=== PATIENT | female | born 1985 | race Caucasian/White ===

== ENCOUNTER 2024-06-21 22:50 | Emergency (ER) | payer MEDICAID, SELFPAY ==
[2024-06-21 22:52] VITALS: BP 131/93; PULSE 100; PULSE 103; RESP 100; RESP 18; TEMP 36.8; O2SAT 96; O2SAT 98; BMI 37.1
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
--- NOTE | 2024-06-21 23:45 | PC.NURSE ---
PT AWAKE AND AMBULATORY. PT WALKING AROUND OUTSIDE OF ROOM. ENCOURAGED PT TO STAY AND WAIT TO TALK TO DOCTOR. PT CONTINUES TO REFUSE TO STAY. STATES SHE HAS WORK IN THE MORNING. INFORMED PT OF CONSEQUENCES, INCLUDING UP TO NOT WAKING UP. PT VERBALIZED UNDERSTANDING.
== END 2024-06-22 00:23 | disposition left against medical advice (07) ==
PROVIDERS: Emergency Provider Emergency Medicine
DX: Z53.21 Procedure and treatment not carried out due to patient leaving prior to being seen by health care provider (principal)
CPT/HCPCS: 99281

== ENCOUNTER 2025-01-16 15:01 | Emergency (ER) | payer MEDICAID, SELFPAY ==
[2025-01-16 15:29] VITALS: BP 127/84; PULSE 74; RESP 18; TEMP 36.9; O2SAT 98; BMI 33.4
--- NOTE | 2025-01-16 15:33 | XR_ITS ---
Examination: Complete OB ultrasound, less than 14 weeks, transabdominal Date and time of exam: January 16, 2025, 1612 hrs. Indications: Heavy vaginal bleeding today Technique: Obstetrical ultrasound images less than 14 weeks performed via transabdominal imaging Findings: A normal shaped single intrauterine gestation is present in the uterus. CRL 0.7 cm corresponds to 6 weeks 3 days gestational age No subchorionic hemorrhage Ultrasonographic survey of visible and placental structures unremarkable. Amniotic fluid volume appears appropriate for this estimated gestational age. Right ovary 4.5 cm arterial flow. Left ovary 4.3 cm arterial flow Impression: Viable intrauterine gestation 6 weeks 3 days No subchorionic hemorrhage
--- NOTE | 2025-01-16 15:33 | PD.EDRME ---
Rapid Medical Screening Exam RME Arrival date/time: 01/16/25 15:01 39-year-old female with no known medical history presents to the emergency room with a chief complaint of vaginal bleeding x 2 hours. Patient is currently 6 weeks she is a G4, P2. I have greeted and performed a focused initial assessment of this patient. A comprehensive ED assessment and evaluation of the patient, analysis of all test results, and completion of the medical decision making process will be conducted by additional ED providers. Chief Complaint: Vaginal Bleeding Time Seen by Provider: 01/16/25 15:30 Vital signs: Vital Signs Temperature 98.4 F 01/16/25 15:29 Pulse Rate 74 01/16/25 15:29 Respiratory Rate 18 01/16/25 15:29 Blood Pressure 127/84 01/16/25 15:29 Pulse Oximetry (%) 98 01/16/25 15:29 Oxygen Delivery Method Room Air 01/16/25 15:29 Vital signs reviewed by provider: Yes
[2025-01-16 16:07] LABS: Basophils # (Auto) 0.0 Thou/mm3 (0.0-0.2); Basophils % (Auto) 0 % (0-2.5); Eosinophils # (Auto) 0.1 Thou/mm3 (0.0-0.5); Eosinophils % (Auto) 1 % (0-10); Hematocrit 41.2 % (36.0-46.0); Hemoglobin 14.2 g/dL (12.0-16.0); Immature Granulocytes Auto 0.02 Thou/mm3 (0.00-0.00); Lymphocytes # (Auto) 1.9 Thou/mm3 (1.0-4.8); Lymphocytes % (Auto) 26 % (10-50); Mean Corpuscular HGB Conc 34.5 g/dl (31.0-37.0); Mean Corpuscular Hemoglobin 32.7 pg (25.0-35.0); Mean Corpuscular Volume 95 fL (80-100); Monocytes # (Auto) 0.4 Thou/mm3 (0.0-0.8); Monocytes % (Auto) 6 % (0-12); Neutrophils # (Auto) 4.8 Thou/mm3 (1.8-7.7); Neutrophils % (Auto) 67 % (37-80); Nucleated Red Blood Cell # 0.00 Thou/mm3 (0.00-0.00); Nucleated Red Blood Cell % 0 /100 WBC (0); Platelet Count 141 Thou/mm3 (140-440); RDW Standard Deviation 45.1 fL (36.4-46.3); Red Blood Count 4.34 Miln/mm3 (4.00-5.20); White Blood Count 7.1 Thou/mm3 (3.6-11.0)
[2025-01-16 16:30] LABS: Alanine Aminotransferase 11 U/L (10-49); Albumin, Serum 4.2 gm/dL (3.5-5.0); Albumin/Globulin Ratio 1.9 (1.2-2.2); Alkaline Phosphatase 54 U/L (46-116); Anion Gap 7 (7-16); Aspartate Amino Transferase 18 U/L (0-34); BUN/Creatinine Ratio 6 Ratio (12-20); Bilirubin,Total 0.4 mg/dL (0.3-1.2); Blood Urea Nitrogen < 5 mg/dL (9-23); Calcium 9.9 mg/dL (8.3-10.6); Calcium (Corrected) 9.9 mg/dL (8.5-10.1); Carbon Dioxide 24.8 mMol/L (20.0-31.0); Chloride 109 mMol/L (98-107); Creatinine (Component) 0.8 mg/dL (0.6-1.3); Estimated Creatinine Clearance 122.8 mL/min (>60); Globulin 2.2 gm/dL (2.3-3.5); Glucose 84 mg/dL (74-106); Osmolality,Calculated 277 (275-295); Potassium 4.4 mMol/L (3.4-5.1); Sodium 141 mMol/L (136-145); Total Protein 6.4 gm/dL (5.7-8.2); eGFR > 60 See Note
[2025-01-16 17:05] LABS: Beta HCG,Quantitative 40337 mIU/mL (<5.0)
[2025-01-16 17:09] LABS: Collection Type, Urine Clean Catch
[2025-01-16 17:19] LABS: Bilirubin,Urine Negative (Negative); Blood,Urine 2+ (Negative); Clarity,Urine Clear (Clear/Hazy); Color,Urine Yellow (Lt Yel-Yel); Glucose, Urine Negative (Negative); Ketones,Urine Negative (Negative); Leukocyte Esterase,Urine Negative (Negative); Nitrite,Urine Negative (Negative); PH,Urine 5.5 (5.0-7.0); Protein,Urine Negative (Neg - Trace); RBC,Urine 2 /hpf (0-3); Specific Gravity,Urine 1.018 (1.001-1.035); Squamous Epithelial Cell,Urine 1 /hpf (0-5); Urobilinogen,Urine Negative mg/dL (0.0-1.0); WBC,Urine 2 /hpf (0-5)
--- NOTE | 2025-01-16 18:49 | EDNOTE_ITS ---
ED OB Contraction Preg RMI/HPI General Chief complaint: Vaginal Bleeding Stated complaint: , 6 weeks OB, vaginal bleeding X 2 hours Time Seen by Provider: 01/16/25 15:30 Arrival date/time: 01/16/25 15:01 RME / HPI RME / HPI Narrative: 01/16/25 15:01 39-year-old female with no known medical history presents to the emergency room with a chief complaint of vaginal bleeding x 2 hours. Patient is currently 6 weeks she is a G4, P2. I have greeted and performed a focused initial assessment of this patient. A comprehensive ED assessment and evaluation of the patient, analysis of all test results, and completion of the medical decision making process will be conducted by additional ED providers. Dr. Mills?s Main ED Evaluation: 39yo female who is EGA 6 weeks gestati on, recent home positive test now presenting with vaginal bleeding with what appeared to be dark blood earlier today. She had mild abdominal cramping that has since resolved. No fever, chills, vomiting, dizziness, or near syncope. PMH unremarkable. PSH unremarkable. Allergies ?penicillin. Related Data Home Medications ?Medication ?Instructions ?Recorded ?Confirmed labetalol 100 mg tablet 100 mg PO BID 08/20/1902/24 vit no.95-ferrous 1 tab PO DAILY 08/20/1908/10 fumarate 28 mg-folic acid 800 mcg tablet () iron 18 mg tablet 1 mg PO QDAY 02/25/20 Previous Rx's ?Medication ?Instructions ?Recorded hydrocodone 5 mg-acetaminophen 325 1 tab PO Q6H PRN pa in #30 tabs 02/26/20 mg tablet ([place]) albuterol sulfate 90 mcg/actuation 2 puff inhalation Q ID PRN 11/10/21 aerosol inhaler shortness of breath or wheez ing #8.5 grams budesonide-formoterol HFA 80 2 puff inhalation BID #10 .2 grams 11/10/21 mcg-4.5 mcg/actuation aerosol inhaler (Symbicort) hydrocodone 5 mg-acetaminophen 325 1 tab PO BID PRN pa in #8 tabs 02/24/24 mg tablet ibuprofen 800 mg tablet 800 mg PO TID PRN pain #30 t abs 02/24/24 hydrocodone 5 mg-acetaminophen 325 1 tab PO BID PRN pa in #10 tabs 02/27/24 mg tablet ibuprofen 600 mg tablet 600 mg PO Q8H PRN pain #20 t abs 02/27/24 promethazine 12.5 mg tablet 12.5 mg PO TID nausea #21 tabs 01/16/25 Allergies Allergy/AdvReac Type Severity Reaction Status Date / Time codeine Allergy Mild RASH Verified 01/16/25 15:06 Penicillins Allergy Mild VOMITING Verified 01/16/25 15:06 Review of Systems Review of Systems Systems Reviewed: All systems reviewed, normal except as documented ED Exam Narrative Physical exam: GENERAL APPEARANCE: alert and oriented x 4, well-developed, well-nourished, nontoxic, no acute distress VITALS: All vitals were reviewed and the pulse ox is 98% on room air, which is normal according to my interpretation. HEENT: Normocephalic, atraumatic; pupils equal, round, reactive to light; EOMI; mucous membranes pink, moist; oropharynx clear NECK: Supple LUNGS: CTABL; no wheezes, no rales, no rhonchi HEART: Regular rate, regular rhythm; normal S1, S2; no murmurs ABDOMEN: obese, non distended; soft, no tenderness, no guarding, no rebound BACK: no CVA tenderness EXTREMITIES: atraumatic; no edema NEUROLOGIC: awake; alert and oriented x4; cranial nerves II-XII grossly intact; no focal sensory or motor deficits PSYCHIATRIC: appropriate mood and affect SKIN: warm, dry, normal color; no rashes Course Quality Measures none Orders Category Date Time Status US OB <= 14 weeks fetus Stat Exams 01/16/25 15:33 Completed Beta HCG,Quantitative Stat Lab 01/16/25 15:55 Completed CBC Stat Lab 01/16/25 15:55 Completed CMP [Comprehensive Metabolic Panel] Stat Lab 01/16/25 15:55 Completed RHOGAM [Rho(D) Immune Globulin] Stat Lab 01/16/25 15:55 Completed Type and Screen Stat Lab 01/16/25 15:55 Completed UA [Urinalysis] Stat Lab 01/16/25 16:59 Completed Vital Signs Vital signs: Vital Signs Temperature 98.4 F 01/16/25 15:29 Pulse Rate 74 01/16/25 15:29 Respiratory Rate 18 01/16/25 15:29 Blood Pressure 127/84 01/16/25 15:29 Pulse Oximetry (%) 98 01/16/25 15:29 Oxygen Delivery Method Room Air 01/16/25 15:29 Vaginal Bleeding MDM Narrative MDM Narrative: Scribe Attestation: 01/16/25 - Mariel Xiong am scribing for and in the presence of Dr. Mills. 39yo female who is EGA 6 weeks gestation, recent home positive test now presenting with vaginal bleeding with what appeared to be dark blood earlier today. She had mild abdominal cramping that has since resolved. Please see PE findings. Lab markers demonstrate WBC 7.1, Hgb 14, and normal platelet count. Chemistries unremarkable. Quantitative HCG 40k. Special studies including pelvic US demonstrated viable IUP of 6 weeks 3 days. No subchorionic hemorrhage noted. Will update Rhogam status and reassure at this time. Patient instructed to force fluids, pelvic rest, and will be placed on combination of anti-emetics and is to take Tylenol for pain. Close follow-up with [facility]PER[facility] anticipated. Precau tionary instructions issued. Dx: threatened miscarrige Patient data External records reviewed:: [facility] previous records (Per chart review, patient has no relevant previous ED visits.) Clinical information provided by:: patient Social determinants that could affect healthcare access:: none Patient has the following chronic illnesses:: none How is presenting disease/condition affected by chronic disease/condition?: no chronic disease Evaluation data The following diagnostics were reviewed and interpreted by me:: lab results and radiology exam(s) Lab and/or radiology exams considered but not ordered:: none Interpretation Summary: [place] [facility] Report Signed Patient: RASHI LUA [facility]. Record#: [id number] Birthdate: 1985 Age/Sex: 39 / F Location: [facility] Attending Dr: Ordering Physician: Aníbal Molina Date of Service: 01/16/25 Procedure(s): US OB <= 14 weeks fetus Accession Number(s): [id number] cc: Aníbal Molina; Phillip Jaquez MD; NO PRIMARY/FAMILY,PHYSICIAN~ Examination: Complete OB ultrasound, less than 14 weeks, transabdominal Date and time of exam: January 16, 2025, 1612 hrs. Indications: Heavy vaginal bleeding today Technique: Obstetrical ultrasound images less than 14 weeks performed via transabdominal imaging Findings: A normal shaped single intrauterine gestation is present in the uterus. CRL 0.7 cm corresponds to 6 weeks 3 days gestational age No subchorionic hemorrhage Ultrasonographic survey of visible and placental structures unremarkable. Amniotic fluid volume appears appropriate for this estimated gestational age. Right ovary 4.5 cm arterial flow. Left ovary 4.3 cm arterial flow Impression: Viable intrauterine gestation 6 weeks 3 days No subchorionic hemorrhage Dictated By: Phillip Jaquez MD Signed By: <Electronically signed by Phillip Jaquez MD in OV> 01/16/25 1728 Medications / Prescriptions Medications or Prescriptions considered but not ordered:: none Medication administrations:: Rhogam Consultations Consultation(s) initiated? (list below): No Diagnosis Vaginal Bleeding Differential Diagnosis: missed , threatened , dysfunctional uterine bleeding, incomplete , ectopic without intrauterine and vaginal bleeding Most likely diagnosis given after review of the tests above:: threatened Admission Indicated Admission indicated?: not indicated Admission Request Was there a request for admission?: No Disposition Plan Disposition Plan: Discharge Discharge Attestation Discharge Attestation: The patient and all family members were given an opportunity to ask questions and understood the discharge instructions. Discharge instructions specifically effects, indications for sooner follow up or return to the emergency department, and the expected course of current diagnosis. Patient condition: Stable Discharge Plan Plan Patient Disposition: HOME (Self Care) Discharge Disposition comment: Stable Prescriptions/Referrals Prescriptions/Med Rec: New promethazine 12.5 mg tablet 12.5 mg PO TID Qty: 21 0RF No Action PNV no.95-ferrous fumarate-FA [] 28 mg iron- 800 mcg Tablet 1 tab PO DAILY labetalol 100 mg tablet 100 mg PO BID Patient Comments: TAKE 1 TABLET BY MOUTH TWICE A DAY budesonide-formoterol [Symbicort] 80-4.5 mcg/actuation HFA aerosol inhaler 2 puff inhalation BID Qty: 10.2 0RF albuterol sulfate 90 mcg/actuation HFA aerosol inhaler 2 puff inhalation QID PRN (Reason: shortness of breath or wheezing) Qty: 8.5 0RF iron 18 mg Tablet 1 mg PO QDAY hydrocodone-acetaminophen [[place]] 5-325 mg tablet 1 tab PO Q6H MDD 4 PRN (Reason: pain) Qty: 30 0RF ibuprofen 800 mg tablet 800 mg PO TID PRN (Reason: pain) Qty: 30 0RF hydrocodone-acetaminophen 5-325 mg tablet 1 tab PO BID MDD 10 PRN (Reason: pain) Qty: 8 0RF hydrocodone-acetaminophen 5-325 mg tablet 1 tab PO BID MDD 2 tabs PRN (Reason: pain) Qty: 10 0RF ibuprofen 600 mg tablet 600 mg PO Q8H PRN (Reason: pain) Qty: 20 0RF Referrals: No Primary/Family,Physician [Primary Care Provider] - In 1 week Problem List Clinical Impression: Miscarriage, threatened, early Patient/Caregiver Discharge Instructions Discharge Activity: activity as tolerated Other Activity Instructions:: Pelvic rest Diet Instructions: For fluids Education Materials: ED Possible Miscarriage ... Additional Instructions: Force fluids, pelvic rest, medication as directed, follow-up with [facility] [employer] MANAGER physician within 1 to 2 weeks return if worsening Print Language: Ugandan Stand Alone Forms: Priyanka Award Info., Work/School Release, Patient Portal Info Letter
[2025-01-16 21:14] VITALS: BP 124/75; RESP 16; TEMP 36.7; O2SAT 98
[2025-01-16 21:32] VITALS: BP 124/79; PULSE 59; RESP 16; TEMP 36.7; TEMP 36.8; O2SAT 98
[2025-01-16 21:47] VITALS: BP 120/80; PULSE 59; RESP 16; TEMP 36.8; O2SAT 98
== END 2025-01-16 21:50 | disposition home or self-care (01) ==
PROVIDERS: Nurse Practitioner Family; Emergency Provider Emergency Medicine
DX: O20.0 Threatened abortion (principal); Z3A.01 Less than 8 weeks gestation of pregnancy
CPT/HCPCS: 36415; 76801; 80053; 81001; 84702; 85025; 86850; 86900; 86901; 99284; J2790

== ENCOUNTER 2025-01-26 15:38 | Emergency (ER) | payer MEDICAID, SELFPAY ==
[2025-01-26 15:54] VITALS: BP 128/80; PULSE 75; RESP 18; TEMP 37.3; O2SAT 97; BMI 36.1
--- NOTE | 2025-01-26 16:08 | XR_ITS ---
Examination: Complete OB ultrasound, less than 14 weeks, transabdominal Date and time of exam: January 26, 2025, 1633 hours INDICATIONS: History vaginal bleeding January 16, 2025 and today Technique: Obstetrical ultrasound images less than 14 weeks performed via transabdominal imaging Findings: A normal shaped single intrauterine gestation is present in the uterus. CRL 1.6 cm corresponds to 8 weeks 0 days gestational age Cardiac motion 164 BPM No subchorionic hemorrhage Ultrasonographic survey of visible and placental structures unremarkable. Amniotic fluid volume appears appropriate for this estimated gestational age. Right ovary 4.5 cm arterial flow 15 mm corpus luteum cyst Left ovary obscured by bowel gas IMPRESSION: Viable intrauterine gestation 8 weeks 0 days No subchorionic hemorrhage
--- NOTE | 2025-01-26 16:08 | PD.EDRME ---
Rapid Medical Screening Exam E Arrival date/time: 01/26/25 15:38 39-year-old female with no known medical history presents to the emergency room with a chief complaint of vaginal bleeding x 3 days. Patient is currently 8 weeks she is a G G4, P3. I have greeted and performed a focused initial assessment of this patient. A comprehensive ED assessment and evaluation of the patient, analysis of all test results, and completion of the medical decision making process will be conducted by additional ED providers. Chief Complaint: Vaginal Bleeding Time Seen by Provider: 01/26/25 15:50 Vital signs: Vital Signs Temperature 99.2 F 01/26/25 15:54 Pulse Rate 75 01/26/25 15:54 Respiratory Rate 18 01/26/25 15:54 Blood Pressure 128/80 01/26/25 15:54 Pulse Oximetry (%) 97 01/26/25 15:54 Oxygen Delivery Method Room Air 01/26/25 15:54 Vital signs reviewed by provider: Yes
[2025-01-26 16:47] LABS: Collection Type, Urine Clean Catch; RBC,Urine 0 /hpf (0-3)
[2025-01-26 16:54] LABS: Basophils # (Auto) 0.0 Thou/mm3 (0.0-0.2); Basophils % (Auto) 0 % (0-2.5); Eosinophils # (Auto) 0.0 Thou/mm3 (0.0-0.5); Eosinophils % (Auto) 1 % (0-10); Hematocrit 39.6 % (36.0-46.0); Hemoglobin 13.8 g/dL (12.0-16.0); Immature Granulocytes Auto 0.02 Thou/mm3 (0.00-0.00); Lymphocytes # (Auto) 2.5 Thou/mm3 (1.0-4.8); Lymphocytes % (Auto) 30 % (10-50); Mean Corpuscular HGB Conc 34.8 g/dl (31.0-37.0); Mean Corpuscular Hemoglobin 32.1 pg (25.0-35.0); Mean Corpuscular Volume 92 fL (80-100); Monocytes # (Auto) 0.4 Thou/mm3 (0.0-0.8); Monocytes % (Auto) 5 % (0-12); Neutrophils # (Auto) 5.4 Thou/mm3 (1.8-7.7); Neutrophils % (Auto) 64 % (37-80); Nucleated Red Blood Cell # 0.00 Thou/mm3 (0.00-0.00); Nucleated Red Blood Cell % 0 /100 WBC (0); Platelet Count 147 Thou/mm3 (140-440); RDW Standard Deviation 42.1 fL (36.4-46.3); Red Blood Count 4.30 Miln/mm3 (4.00-5.20); White Blood Count 8.4 Thou/mm3 (3.6-11.0)
[2025-01-26 17:24] LABS: Alanine Aminotransferase 13 U/L (10-49); Albumin, Serum 4.2 gm/dL (3.5-5.0); Albumin/Globulin Ratio 1.8 (1.2-2.2); Alkaline Phosphatase 55 U/L (46-116); Anion Gap 10 (7-16); Aspartate Amino Transferase 18 U/L (0-34); BUN/Creatinine Ratio 10 Ratio (12-20); Bilirubin,Total 0.5 mg/dL (0.3-1.2); Blood Urea Nitrogen 7 mg/dL (9-23); Calcium 9.1 mg/dL (8.3-10.6); Calcium (Corrected) 9.1 mg/dL (8.5-10.1); Carbon Dioxide 23.0 mMol/L (20.0-31.0); Chloride 107 mMol/L (98-107); Creatinine (Component) 0.7 mg/dL (0.6-1.3); Estimated Creatinine Clearance 132.4 mL/min (>60); Globulin 2.4 gm/dL (2.3-3.5); Glucose 69 mg/dL (74-106); Osmolality,Calculated 275 (275-295); Potassium 3.6 mMol/L (3.4-5.1); Sodium 140 mMol/L (136-145); Total Protein 6.6 gm/dL (5.7-8.2); eGFR > 60 See Note
[2025-01-26 17:28] LABS: Bacteria,Urine Rare; Bilirubin,Urine Negative (Negative); Blood,Urine Negative (Negative); Clarity,Urine Clear (Clear/Hazy); Color,Urine Yellow (Lt Yel-Yel); Glucose, Urine Negative (Negative); Ketones,Urine Negative (Negative); Leukocyte Esterase,Urine Negative (Negative); Nitrite,Urine Negative (Negative); PH,Urine 6.0 (5.0-7.0); Protein,Urine Negative (Neg - Trace); Specific Gravity,Urine 1.026 (1.001-1.035); Squamous Epithelial Cell,Urine 1 /hpf (0-5); Transitional Epi Cells,Urine < 1 /hpf (0-5); Urobilinogen,Urine Negative mg/dL (0.0-1.0); WBC,Urine 1 /hpf (0-5)
--- NOTE | 2025-01-26 18:52 | EDNOTE_ITS ---
ED OB Contraction Preg RMI/HPI General Chief complaint: Vaginal Bleeding Stated complaint: VAG BLEED, 8 WKS PREG Time Seen by Provider: 01/26/25 15:50 Arrival date/time: 01/26/25 15:38 RME / HPI RME / HPI Narrative: 01/26/25 15:38 39-year-old female with no known medical history presents to the emergency room with a chief complaint of vaginal bleeding x 3 days. Patient is currently 8 weeks she is a G G4, P3. I have greeted and performed a focused initial assessment of this patient. A comprehensive ED assessment and evaluation of the patient, analysis of all test results, and completion of the medical decision making process will be conducted by additional ED providers. See [facility] for Dr. Hargrove's HPI Documentation. Related Data Home Medications ?Medication ?Instructions ?Recorded ?Confirmed labetalol 100 mg tablet 100 mg PO BID 08/20/1902/24 vit no.95-ferrous 1 tab PO DAILY 08/20/1908/10 fumarate 28 mg-folic acid 800 mcg tablet () iron 18 mg tablet 1 mg PO QDAY 02/25/20 Previous Rx's ?Medication ?Instructions ?Recorded hydrocodone 5 mg-acetaminophen 325 1 tab PO Q6H PRN pa in #30 tabs 02/26/20 mg tablet ([place]) albuterol sulfate 90 mcg/actuation 2 puff inhalation Q ID PRN 11/10/21 aerosol inhaler shortness of breath or wheez ing #8.5 grams budesonide-formoterol HFA 80 2 puff inhalation BID #10 .2 grams 11/10/21 mcg-4.5 mcg/actuation aerosol inhaler (Symbicort) hydrocodone 5 mg-acetaminophen 325 1 tab PO BID PRN pa in #8 tabs 02/24/24 mg tablet ibuprofen 800 mg tablet 800 mg PO TID PRN pain #30 t abs 02/24/24 hydrocodone 5 mg-acetaminophen 325 1 tab PO BID PRN pa in #10 tabs 02/27/24 mg tablet ibuprofen 600 mg tablet 600 mg PO Q8H PRN pain #20 t abs 02/27/24 promethazine 12.5 mg tablet 12.5 mg PO TID nausea #21 tabs 01/16/25 Allergies Allergy/AdvReac Type Severity Reaction Status Date / Time codeine Allergy Mild RASH Verified 01/16/25 15:06 Penicillins Allergy Mild VOMITING Verified 01/16/25 15:06 Review of Systems Review of Systems Systems Reviewed: All systems reviewed, normal except as documented Past Medical History Past Medical History RESPIRATORY: Positive Bronchitis GENITOURINARY: Positive Genitourinary Disorders REPRODUCTIVE: Positive Previous Pregnancies HEMATOLOGIC: Positive Blood Disorders and Anemia OTHER HISTORY: Positive Hospitalization Family History FAMILY HISTORY: Positive Family Cardiac Disorders and Family Cancer ED Exam Narrative Physical exam: See [facility] for Dr. Hargrove's Physical Exam Documentation. Course Quality Measures none Orders Category Date Time Status US OB <= 14 weeks fetus Stat Exams 01/26/25 16:08 Completed ABO/RH Type Stat Lab 01/26/25 16:16 Completed Beta HCG,Quantitative Stat Lab 01/26/25 16:16 Completed CBC Stat Lab 01/26/25 16:16 Completed CMP [Comprehensive Metabolic Panel] Stat Lab 01/26/25 16:16 Completed UA [Urinalysis] Stat Lab 01/26/25 16:30 Completed Vital Signs Vital signs: Vital Signs Temperature 99.2 F 01/26/25 15:54 Pulse Rate 75 01/26/25 15:54 Respiratory Rate 18 01/26/25 15:54 Blood Pressure 128/80 01/26/25 15:54 Pulse Oximetry (%) 97 01/26/25 15:54 Oxygen Delivery Method Room Air 01/26/25 15:54 Vaginal Bleeding [facility] Narrative [facility] Narrative: This section includes all my notes and documentations, including HPI, PE, and ED course. Nayan Hargrove MD HPI: 39 y/o female (~8 weeks) here with several days of spotting. No cramping. No other complaints. ROS: All negative except as documented in HPI. Physical Exam: General: Alert and oriented. No acute distress when remaining still. Eyes: Conjunctivae and lids clear. ENT: No nasal congestion. Neck: Supple. Heart: RRR. Lungs: No respiratory distress. Good air movement. No rhonchi, wheezing, rales. Abdomen: Soft and nontender. Normal bowel sounds. No distension. No rebound or guarding. Back: No CVA tenderness. Skin: Warm and dry. Neuro: Alert and oriented X 3. I reviewed all diagnostic test results: My review of the US report is 8-week IUP. Blood tests and urine tests remarkable for beta-hCG 89,514. At this point, diagnoses include: Threatened Miscarriage Recommended expectant management. Based on my best medical judgment, made decision no further evaluation or treatment indicated at this time. Patient understands and agrees to the discharge instructions customized and printed, see below. Discharge Instructions from Dr. Hargrove printed for you: 1.? After evaluation, your baby is doing well with good cardiac activity. 2.? Based on ultrasound today, gestational age is 8 weeks. 3.? Only time will tell what will happen. If your symptoms, including bleeding worsen, you can have a miscarriage. If your symptoms stop, you can have successful . 4.? If you do have a miscarriage, we won't be able to save your baby. Under 20-24 weeks, we can't save the baby. 5.? No sexual activity until cleared by a doctor taking care of you. 6.? See a private doctor on 01/28/2025 for recheck and further care. Ask to review all test results and official radiology reports, to make sure you receive all necessary follow-ups and monitoring. Your hCG ( hormone level) was 89,514.? This doubles every 2 to 3 days in normal . 7.? Seek immediate medical care with intolerable pain, extremely heavy vaginal bleeding (soaking more than 3 pads per hour), or with any concerns. Nayan Hargrove MD Patient data External records reviewed:: [facility] previous records (Reviewed prior ED records from 01/16/25. Patient was seen for Miscarriage, threatened, early .) Clinical information provided by:: patient Social determinants that could affect healthcare access:: none Patient has the following chronic illnesses:: Anemia How is presenting disease/condition affected by chronic disease/condition?: exac erbated by Evaluation data The following diagnostics were reviewed and interpreted by me:: lab results and radiology exam(s) Lab and/or radiology exams considered but not ordered:: None Interpretation Summary: I reviewed all diagnostic test results: My review of the US report is 8-week IUP. Blood tests and urine tests remarkable for beta-hCG 89,514. Medications / Prescriptions Medications or Prescriptions considered but not ordered:: None Medication administrations:: None Consultations Consultation(s) initiated? (list below): No Diagnosis Vaginal Bleeding Differential Diagnosis: threatened , dysfunctional uterine bleeding, ectopic without intrauterine and vaginal bleeding Most likely diagnosis given after review of the tests above:: Threatened Miscarriage Admission Indicated Admission indicated?: not indicated Explain why admission is indicated or not indicated:: With no condition needing emergent intervention, there was no indication for admission. Admission Request Was there a request for admission?: No Disposition Plan Disposition Plan: Discharge Discharge Attestation Discharge Attestation: The patient and all family members were given an opportunity to ask questions and understood the discharge instructions. Discharge instructions specifically effects, indications for sooner follow up or return to the emergency department, and the expected course of current diagnosis. Patient condition: Stable Discharge Plan Plan Patient Disposition: HOME (Self Care) Prescriptions/Referrals Prescriptions/Med Rec: No Action PNV no.95-ferrous fumarate-FA [] 28 mg iron- 800 mcg Tablet 1 tab PO DAILY labetalol 100 mg tablet 100 mg PO BID Patient Comments: TAKE 1 TABLET BY MOUTH TWICE A DAY budesonide-formoterol [Symbicort] 80-4.5 mcg/actuation HFA aerosol inhaler 2 puff inhalation BID Qty: 10.2 0RF albuterol sulfate 90 mcg/actuation HFA aerosol inhaler 2 puff inhalation QID PRN (Reason: shortness of breath or wheezing) Qty: 8.5 0RF iron 18 mg Tablet 1 mg PO QDAY hydrocodone-acetaminophen [[place]] 5-325 mg tablet 1 tab PO Q6H MDD 4 PRN (Reason: pain) Qty: 30 0RF ibuprofen 800 mg tablet 800 mg PO TID PRN (Reason: pain) Qty: 30 0RF hydrocodone-acetaminophen 5-325 mg tablet 1 tab PO BID MDD 10 PRN (Reason: pain) Qty: 8 0RF hydrocodone-acetaminophen 5-325 mg tablet 1 tab PO BID MDD 2 tabs PRN (Reason: pain) Qty: 10 0RF ibuprofen 600 mg tablet 600 mg PO Q8H PRN (Reason: pain) Qty: 20 0RF promethazine 12.5 mg tablet 12.5 mg PO TID Qty: 21 0RF Referrals: No Primary/Family,Physician [Primary Care Provider] - In 1 week Problem List Clinical Impression: Threatened miscarriage Patient/Caregiver Discharge Instructions Discharge Activity: activity as tolerated Education Materials: ED Possible Miscarriage ... Additional Instructions: Discharge Instructions from Dr. Hargrove printed for you: 1.? After evaluation, your baby is doing well with good cardiac activity. 2.? Based on ultrasound today, gestational age is 8 weeks. 3.? Only time will tell what will happen. If your symptoms, including bleeding worsen, you can have a miscarriage. If your symptoms stop, you can have successful . 4.? If you do have a miscarriage, we won't be able to save your baby. Under 20-24 weeks, we can't save the baby. 5.? No sexual activity until cleared by a doctor taking care of you. 6.? See a private doctor on 01/28/2025 for recheck and further care. Ask to review all test results and official radiology reports, to make sure you receive all necessary follow-ups and monitoring. Your hCG ( hormone level) was 89,514.? This doubles every 2 to 3 days in normal . 7.? Seek immediate medical care with intolerable pain, extremely heavy vaginal bleeding (soaking more than 3 pads per hour), or with any concerns. Print Language: Afghan Stand Alone Forms: Priyanka Award Info., Patient Portal Info Letter
== END 2025-01-26 19:02 | disposition home or self-care (01) ==
PROVIDERS: Nurse Practitioner Family; Emergency Provider Emergency Medicine
DX: O20.0 Threatened abortion (principal); Z3A.08 8 weeks gestation of pregnancy
CPT/HCPCS: 36415; 76801; 80053; 81001; 84702; 85025; 86900; 86901; 99283

== ENCOUNTER 2025-02-20 09:17 | Emergency (ER) | payer MEDICAID, SELFPAY ==
[2025-02-20 09:19] VITALS: BMI 36.3
[2025-02-20 09:27] VITALS: BP 132/80; PULSE 87; RESP 18; TEMP 36.6; O2SAT 99; BMI 33.1
--- NOTE | 2025-02-20 09:34 | XR_ITS ---
Examination: Duplex scan of the lower extremity, unilateral left Date and time of exam: February 20, 2025, 10:20 a.m. INDICATIONS: Left foot and ankle pain beginning February 18, 2025 Technique: Duplex scan of the extremity veins using B-mode/grayscale imaging and Doppler spectral analysis and color flow Attention is directed to internal echogenicity, compression and augmentation involving these veins, color flow assessment, spectral analysis Findings: Major deep venous structures in the extremity demonstrate normal course and caliber. There is no evidence of deep vein thrombosis. Normal color flow and spectral analysis Left popliteal cyst 20 x 14 x 19 mm Impression: Negative for DVT..
--- NOTE | 2025-02-20 09:34 | XR_ITS ---
Examination: Foot, left, 3 views Technique: AP, oblique, lateral views foot, 3 views Date and time of exam: February 20, 2025, 1007 hours INDICATIONS: Left foot pain months FINDINGS: Extensive ossification the Achilles insertion 5 mm plantar bony calcaneal spur No fracture IMPRESSION: Extensive ossification in the Achilles insertion
--- NOTE | 2025-02-20 09:34 | XR_ITS ---
EXAMINATION: Ankle, left 3 views. Technique: Ankle AP, oblique, lateral 3 views Date and time of exam: February 20, 2025, 1007 hours INDICATIONS: Injury to the ankle today, ankle pain. FINDINGS: No fracture or dislocation No foreign body Extensive ossification Achilles insertion and 5 mm plantar bony calcaneal spur IMPRESSION: Achilles tendinosis
--- NOTE | 2025-02-20 09:52 | EDNOTE_ITS ---
Lower Extremity Injury RME/HPI General Chief Complaint: Ankle/Foot Injury Stated Complaint: LEFT FOOT AND ANKLE PAIN AND SWELL, 11WKS Time Seen by Provider: 02/20/25 09:21 Arrival date/time: 02/20/25 09:17 39-year-old female presents the emergency room today stating she is approximate 11 weeks patient reports pain to the dorsal aspect of her left foot there are no other associated symptoms or aggravating factors no other modifying factors, patient denies taking medication before coming to ER today lateral aspect of her left ankle Limitations: no limitations Related Data Home Medications ?Medication ?Instructions ?Recorded ?Confirmed labetalol 100 mg tablet 100 mg PO BID 08/20/1902/24 vit no.95-ferrous 1 tab PO DAILY 08/20/1908/10 fumarate 28 mg-folic acid 800 mcg tablet () iron 18 mg tablet 1 mg PO QDAY 02/25/20 Previous Rx's ?Medication ?Instructions ?Recorded hydrocodone 5 mg-acetaminophen 325 1 tab PO Q6H PRN pa in #30 tabs 02/26/20 mg tablet ([place]) albuterol sulfate 90 mcg/actuation 2 puff inhalation Q ID PRN 11/10/21 aerosol inhaler shortness of breath or wheez ing #8.5 grams budesonide-formoterol HFA 80 2 puff inhalation BID #10 .2 grams 11/10/21 mcg-4.5 mcg/actuation aerosol inhaler (Symbicort) hydrocodone 5 mg-acetaminophen 325 1 tab PO BID PRN pa in #8 tabs 02/24/24 mg tablet ibuprofen 800 mg tablet 800 mg PO TID PRN pain #30 t abs 02/24/24 hydrocodone 5 mg-acetaminophen 325 1 tab PO BID PRN pa in #10 tabs 02/27/24 mg tablet ibuprofen 600 mg tablet 600 mg PO Q8H PRN pain #20 t abs 02/27/24 promethazine 12.5 mg tablet 12.5 mg PO TID nausea #21 tabs 01/16/25 Allergies Allergy/AdvReac Type Severity Reaction Status Date / Time codeine Allergy Mild RASH Verified 02/20/25 09:19 Penicillins Allergy Mild VOMITING Verified 02/20/25 09:19 Review of Systems Review of Systems Systems Reviewed: All systems reviewed, normal except as documented Constitutional Constitutional: Reports system reviewed and no additional complaints, except as documented, Denies fever(s) and Denies headache(s) Eyes Eyes: Reports system reviewed and no additional complaints, except as documented and Denies blurry vision ENT Ears, Nose, Mouth, and Throat: Reports system reviewed and no additional complaints, except as documented, Denies headache(s), Denies nasal congestion and Denies nasal discharge Cardiovascular Cardiovascular: Reports system reviewed and no additional complaints, except as documented, Denies chest pain and Denies dyspnea Respiratory Respiratory: Reports system reviewed and no additional complaints, except as documented, Denies chest congestion, Denies cough and Denies dyspnea Gastrointestinal Gastrointestinal: Reports system reviewed and no additional complaints, except as documented and Denies abdominal pain Musculoskeletal Musculoskeletal: Reports system reviewed and no additional complaints, except as documented, Reports abnormal gait, Reports arthralgias, Denies deformity, Denies joint swelling, Denies numbness, Reports stiffness and Denies tingling Integumentary/Breasts Skin/Breast: Reports system reviewed and no additional complaints, except as documented and Denies rash Neurologic Neurologic: Reports system reviewed and no additional complaints, except as documented, Reports as per HPI, Reports abnormal gait, Denies headache(s), Denies numbness and Denies tingling Past Medical History Past Medical History NEUROLOGIC: Negative Neurological Disorders or Seizures CARDIAC: Negative Cardiac Disorders or Congestive Heart Failure RESPIRATORY: Positive Bronchitis; Negative Chronic Obstructive Pulmonary Disease (COPD) GASTROINTESTINAL: Negative Gastrointestinal Disorders or Hepatitis GENITOURINARY: Positive Genitourinary Disorders; Negative Renal Disease REPRODUCTIVE: Positive Previous Pregnancies; Negative Endometriosis, Pelvic Inflammatory Disease or Uterine Prolapse MUSCULOSKELETAL: Negative Musculoskeletal Disorders ENDOCRINE: Negative Endocrine Disorders, Diabetes Mellitus Type 1 or Diabetes Mellitus Type 2 HEMATOLOGIC: Positive Blood Disorders and Anemia OTHER HISTORY: Positive Hospitalization and Chicken Pox; Negative Autoimmune Disease, Falls, Blood Transfusions, Blood Transfusion Reaction, Anesthesia Reactions, MRSA, VRSA, Vancomycin-Resistant Enterococci, Human Immunodeficiency Virus (HIV), Measles, Mumps, Rubella ([place] Measles), Pertussis, Clostridium Difficile or Cancer Family History FAMILY HISTORY: Positive Family Cardiac Disorders and Family Cancer; Negative Family Psychiatric Problems, Family Respiratory Disorders, Family Gastrointestinal Problems, Family Surgery or Family Anesthesia Reaction Surgical History SURGICAL: Negative Cardiac Surgery or Section Social History SMOKING STATUS: Former smoker ED Exam General Limitations: Present no limitations General appearance: Present alert and in no apparent distress Head Head exam: Present atraumatic Eye Eye exam: Present normal appearance, PERRL and EOMI ENT ENT exam: Present normal exam, normal oropharynx and mucous membranes moist Neck Neck exam: Present normal inspection, full ROM and trachea midline Chest Chest inspection: Present normal inspection and symmetric chest wall rise Respiratory Respiratory exam: Present normal lung sounds bilaterally Cardiovascular Cardiovascular exam: Present regular rate, normal rhythm and normal heart sounds Abdominal Exam Abdominal exam: Present soft and normal bowel sounds Extremities Exam Extremities exam: Present full ROM, tenderness and normal capillary refill; Absent pedal edema, joint swelling or calf tenderness Back Exam Back exam: Present normal inspection and full ROM Neurological Exam Neurological exam: Present alert, oriented X3 and CN II-XII intact Psychiatric Psychiatric exam: Present normal affect and normal mood Skin Skin exam: Present warm, dry, intact and normal color Course Quality Measures none Orders Category Date Time Status Crutches .NOW Care 02/20/25 11:56 Completed Splint / Immobilizer STAT Care 02/20/25 11:56 Completed US venous doppler LE LT Stat Exams 02/20/25 09:34 Completed XR ankle comp LT min 3V Stat Exams 02/20/25 09:34 Completed XR foot comp LT min 3V Stat Exams 02/20/25 09:34 Completed Acetaminophen Tab [Tylenol ES Tab] Med 02/20/25 09:34 Discontinued 1,000 mg PO X1 ONE Vital Signs Vital signs: Vital Signs Temperature 97.9 F 02/20/25 09:27 Pulse Rate 87 02/20/25 09:27 Respiratory Rate 18 02/20/25 09:27 Blood Pressure 132/80 H 02/20/25 09:27 Pulse Oximetry (%) 99 02/20/25 09:27 Oxygen Delivery Method Room Air 02/20/25 09:27 O2 saturation 9 9% room air within normal limits PROCEDURES: Splint Fabrication: Clinician Made Type: Posterior Leg Reason for Splint: Optimal Positioning and Pain Management Circulation Distal to Splint: Yes Movement Distal to Splint: Yes Senation Distal to Splint: Yes Tolerance: Tolerates Well Extremity Injury, Lower MDM Narrative MDM Narrative:: 39-year-old female presents the emergency room today stating she is approximate 11 weeks patient reports pain to the dorsal aspect of her left foot there are no other associated symptoms or aggravating factors no other modifying factors, patient denies taking medication before coming to ER today lateral aspect of her left ankle On exam patient well-appearing patient does not appear toxic no acute distress Imaging of left ankle obtained no acute fracture dislocation noted X-ray consistent with Achilles tendinitis Patient placed in a posterior short leg splint given crutches Patient discharged home no distress follow-up primary care doctor next 24 to 48 hours worsening symptoms or concerns return immediately Patient data External records reviewed:: [facility] previous records Clinical information provided by:: patient Social determinants that could affect healthcare access:: none Patient has the following chronic illnesses:: None How is presenting disease/condition affected by chronic disease/condition?: no chronic disease Evaluation data The following diagnostics were reviewed and interpreted by me:: radiology exam(s) Lab and/or radiology exams considered but not ordered:: Radiology obtained Interpretation Summary: Reviewed by me Medications / Prescriptions Medications or Prescriptions considered but not ordered:: Given Medication administrations:: Medication Administration History Discontinued Medications Acetaminophen (Acetaminophen 500 Mg Tablet) 1,000 mg PO X1 ONE Stop: 02/20/25 09:35 Last Admin: 02/20/25 09:41 Dose: Not Given Documented By: RAINE Non-Admin Reason: Per Protocol Comments: pt took tylenol at 0600 Given Consultations Consultation(s) initiated? (list below): No Diagnosis Extremity Injury, Lower Differential Diagnosis: ankle sprain and strain and ankle fracture Most likely diagnosis given after review of the tests above:: Ankle sprain Admission Indicated Admission indicated?: not indicated Admission Request Was there a request for admission?: No Disposition Plan Disposition Plan: Discharge Discharge Attestation Discharge Attestation: The patient and all family members were given an opportunity to ask questions an d understood the discharge instructions. Discharge instructions specifically effects, indications for sooner follow up or return to the emergency department, and the expected course of current diagnosis. Patient condition: Stable Discharge Plan Plan Patient Disposition: HOME (Self Care) Discharge Disposition comment: Stable Prescriptions/Referrals Prescriptions/Med Rec: No Action PNV no.95-ferrous fumarate-FA [] 28 mg iron- 800 mcg Tablet 1 tab PO DAILY labetalol 100 mg tablet 100 mg PO BID Patient Comments: TAKE 1 TABLET BY MOUTH TWICE A DAY budesonide-formoterol [Symbicort] 80-4.5 mcg/actuation HFA aerosol inhaler 2 puff inhalation BID Qty: 10.2 0RF albuterol sulfate 90 mcg/actuation HFA aerosol inhaler 2 puff inhalation QID PRN (Reason: shortness of breath or wheezing) Qty: 8.5 0RF iron 18 mg Tablet 1 mg PO QDAY hydrocodone-acetaminophen [[place]] 5-325 mg tablet 1 tab PO Q6H MDD 4 PRN (Reason: pain) Qty: 30 0RF ibuprofen 800 mg tablet 800 mg PO TID PRN (Reason: pain) Qty: 30 0RF hydrocodone-acetaminophen 5-325 mg tablet 1 tab PO BID MDD 10 PRN (Reason: pain) Qty: 8 0RF hydrocodone-acetaminophen 5-325 mg tablet 1 tab PO BID MDD 2 tabs PRN (Reason: pain) Qty: 10 0RF ibuprofen 600 mg tablet 600 mg PO Q8H PRN (Reason: pain) Qty: 20 0RF promethazine 12.5 mg tablet 12.5 mg PO TID Qty: 21 0RF Referrals: Len Flores MD [Primary Care Provider] - In 1 week Problem List Clinical Impression: Achilles tendinitis Patient/Caregiver Discharge Instructions Education Materials: ED Tendonitis Additional Instructions: Please follow up with your primary care doctor in the next 24-48hrs for any worsening symptoms return here immediately Print Language: Mongolian Stand Alone Forms: Priyanka Award Info., Work/School Release, Patient Portal Info Letter PA/MICHAEL Supervising Physician HERRERA/MICHAEL Supervising Physician: Dr. Hargrove
== END 2025-02-20 12:20 | disposition home or self-care (01) ==
PROVIDERS: Emergency Provider Emergency Medicine; PCP Internal Medicine
DX: O9A.211 Injury, poisoning and certain other consequences of external causes complicating pregnancy, first trimester (principal); M76.62 Achilles tendinitis, left leg; Z3A.11 11 weeks gestation of pregnancy
CPT/HCPCS: 29515; 73610; 73630; 93971; 99283